=== PATIENT | female | born 1950 | race Caucasian/White ===

== ENCOUNTER 2024-10-05 10:40 | Emergency (ER) | payer MEDICARE, OTHER ==
[~2024-10-05] VITALS: Ht 165.1 cm; Wt 84.8 kg
[2024-10-05 11:48] VITALS: TEMP 97.9
[2024-10-05 12:10] LABS: BASOPHILS % 0.4 % (0.0-1.0); EOSINOPHILS % 0.5 % (0.0-6.0); LYMPHOCYTES % 12.7 % (18.0-39.1); MONOCYTES % 11.0 % (4.4-11.3); NEUTROPHILS % 74.9 % (38.7-80.0); RED CELL DISTRIBUTION WIDTH 14.0 % (11.7-14.4)
[2024-10-05 12:50] LABS: EPITHELIAL CELLS,URINE FEW /LPF; LEUKOCYTE ESTERASE ,URINE NEGATIVE (NEGATIVE); PROTEIN,URINE DIPSTICK NEGATIVE (NEGATIVE); URINE UROBILINOGEN 0.2 mg/dL (0.2 - 1); WBC,URINE (MAN) 0-5 /HPF (0-5)
[2024-10-05 12:56] LABS: EST GLOMERULAR FILTRATION RATE 38.0 ML/MIN (>=60)
[2024-10-05] MEDS ORDERED: IOPAMIDOL 370 MG/ML 100 ML INFUS..BTL INJ ONE (13:10)
[2024-10-05] MEDS ORDERED: FLOMAX0.4 MG PO (14:34)
[2024-10-05] MEDS ORDERED: AUGMENTIN 500-1 EACH PO (14:34)
[2024-10-05 14:37] VITALS: PULSE 68; RESP 21
[2024-10-05] MEDS ORDERED: PYRIDIUM100 MG PO (14:37)
[2024-10-05 14:44] VITALS: BP 181/83; O2SAT 100
== END 2024-10-05 14:47 | disposition home or self-care (01) ==
LOC: ER 11:26
DX: R30.0 Dysuria (principal); R10.30 Lower abdominal pain, unspecified; N28.1 Cyst of kidney, acquired; I10 Essential (primary) hypertension; E78.5 Hyperlipidemia, unspecified; K21.9 Gastro-esophageal reflux disease without esophagitis; Z95.810 Presence of automatic (implantable) cardiac defibrillator
CPT/HCPCS: 36415; 74177; 80053; 81001; 81003; 85025; 87086; 99283; Q9967